=== PATIENT | female | born 1930 | race Caucasian/White ===

== ENCOUNTER 2016-11-06 22:37 | Inpatient (IN) | payer MEDICARE, OTHER ==
[~2016-11-06] VITALS: Ht 157.5 cm; Wt 38.0 kg
[~2016-11-06 22:37] MED LIST: ALBU2.5V NEB; ASPI-614 PO; BACL-19 PO; CIME400T PO; GABA-826 PO; HYDR-3237 PO; HYDR-3240 PO; IPRA4AER INH; LISI-424 PO; NITR0.4T SL; NITR1PAT22 TD; ONDA4TAB12 PO
[2016-11-06] MEDS ORDERED: SODIUM CHLORIDE FLUSH 10ML SYR IVF ONE (23:00)
[2016-11-06 23:23] LABS: HEMATOCRIT 41.9 % (34.6-47.8); HEMOGLOBIN 13.6 g/dL (11.7-16.4); WHITE BLOOD COUNT 7.6 x10^3/uL (3.4-10)
[2016-11-06 23:34] LABS: ASPARTATE AMINO TRANSFERASE 11 U/L (15-37); BLOOD UREA NITROGEN 10 mg/dL (7-18)
[2016-11-06 23:49] LABS: IS PT STATUS REG ER OR PRE ER? YES
[2016-11-07] MEDS ORDERED: ENOXAPARIN 40 MG/0.4 ML SQ SCH (00:30)
[2016-11-07] MEDS ORDERED: ONDANSETRON 2MG/ML, 2ML IVPush PRN (00:30)
[2016-11-07] MEDS ORDERED: ACETAMINOPHEN 325 MG TABLET PO PRN (00:30)
[2016-11-07] MEDS ORDERED: ENALAPRILAT 1.25 MG/ML, 2ML IVPush PRN (00:30)
[2016-11-07 01:00] VITALS: BP 166/79
[2016-11-07] MEDS: TEMAZEPAM 15 MG CAPSULE PO PRN (02:04)
[2016-11-07] MEDS: ASPIRIN 325 MG TABLET EC PO SCH (06:07)
[2016-11-07 06:29] LABS: IS PT STATUS REG ER OR PRE ER? NO
[2016-11-07] MEDS ORDERED: ENOXAPARIN 30 MG/0.3 ML SQ SCH (07:00)
[2016-11-07 07:34] VITALS: BP 139/72
[2016-11-07 11:29] LABS: IS PT STATUS REG ER OR PRE ER? NO
[2016-11-07 14:26] VITALS: BP 96/52
[2016-11-07 18:59] VITALS: BP 129/58
[2016-11-08] MEDS ORDERED: ENOXAPARIN 30 MG/0.3 ML SQ SCH (01:00)
[2016-11-08] MEDS: TEMAZEPAM 15 MG CAPSULE PO PRN (01:22)
[2016-11-08 01:26] VITALS: BP 147/71
[2016-11-08 06:49] VITALS: BP 150/66
[2016-11-08] MEDS ORDERED: REGADENOSON 0.4 MG/5 ML SYRINGE ONE (08:03)
[2016-11-08] MEDS: ASPIRIN 325 MG TABLET EC PO SCH (10:41)
== END 2016-11-08 12:04 | disposition home or self-care (01) | DRG 302 ==
LOC: ED 23:59 → EDIP 11-07 00:48 → 4EST 11-07 01:02 → DCLOUNGE 11-08 11:52
PROVIDERS: ADMIT Internal Medicine; ATTEND Internal Medicine
DX: I25.10 Atherosclerotic heart disease of native coronary artery without angina pectoris (principal); E43 Unspecified severe protein-calorie malnutrition; J96.11 Chronic respiratory failure with hypoxia; Z99.81 Dependence on supplemental oxygen; J44.9 Chronic obstructive pulmonary disease, unspecified; E44.1 Mild protein-calorie malnutrition; Z68.1 Body mass index [BMI] 19.9 or less, adult; F17.210 Nicotine dependence, cigarettes, uncomplicated; Z95.5 Presence of coronary angioplasty implant and graft; Z66 Do not resuscitate
CPT/HCPCS: 36415; 71010; 78452; 80053; 83735; 83880; 84484; 85025; 93005; 93017; 96374; J2405; J2785; A9502; C9898